=== PATIENT | female | born 1995 | race Caucasian/White ===

== ENCOUNTER 2021-08-01 11:05 | Emergency (ER) | payer OTHER ==
[~2021-08-01] VITALS: Ht 167.6 cm; Wt 82.7 kg
[2021-08-01] MEDS ORDERED: EXCETAB33 PO (11:34)
[2021-08-01] MEDS ORDERED: ONDA4TAB6 PO (13:35)
[2021-08-01] MEDS ORDERED: DOXY1CAP62 PO (13:35)
[2021-08-01] MEDS ORDERED: KETO10TAB PO (13:35)
[2021-08-01] MEDS ORDERED: BENZ200C70 PO (13:35)
[2021-08-01 14:03] VITALS: BP 120/68
== END 2021-08-01 14:01 | disposition home or self-care (01) ==
LOC: M ED 11:05
DX: J06.9 Acute upper respiratory infection, unspecified (principal); R51.9 Headache, unspecified; F17.200 Nicotine dependence, unspecified, uncomplicated
CPT/HCPCS: 99283; U0003

== ENCOUNTER 2021-08-15 10:23 | Emergency (ER) | payer OTHER ==
[~2021-08-15] VITALS: Ht 167.6 cm; Wt 84.3 kg
[~2021-08-15 10:23] MED LIST: BENZ200C70 PO; DOXY1CAP62 PO; EXCETAB33 PO; KETO10TAB PO; ONDA4TAB6 PO
[2021-08-15 10:24] VITALS: BP 145/83
[2021-08-15 13:04] LABS: URINE PREG TEST NEGATIVE (NEGATIVE)
--- NOTE | 2021-08-15 14:51 | REP ---
INDICATION: IUD, pelvic pain. COMPARISON: None. TECHNIQUE: Transabdominal and transvaginal scanning performed. FINDINGS: Uterine dimensions are 8.8 x 3.7 x 5.9 cm. Endometrial echo is 2 mm in AP dimension and centrally placed. IUD is seen within the endometrial canal. The bladder measures 2.8 x 3.4 x 1.0cm. The right ovary has dimensions of 2.6 x 1.9 x 1.7 cm. It's Doppler flow is normal with a resistive index of 0.56. Left ovary could not be visualized. There is no adnexal mass identified. No free fluid is seen in the cul-de-sac. IMPRESSION: IUD is seen within the endometrial canal. The left ovary could not be visualized. There is no evidence of adnexal mass or free fluid. There is no evidence of right ovarian torsion. <Electronically signed by Gato Elaine > 08/15/21 [id number]
[2021-08-15 15:33] LABS: GC DNA AMPLIFICATION NEGATIVE (NEGATIVE)
== END 2021-08-15 15:32 | disposition home or self-care (01) ==
LOC: M ED 10:23
DX: N93.8 Other specified abnormal uterine and vaginal bleeding (principal); N94.10 Unspecified dyspareunia; F17.200 Nicotine dependence, unspecified, uncomplicated; Z97.5 Presence of (intrauterine) contraceptive device; J30.89 Other allergic rhinitis; Z91.040 Latex allergy status